=== PATIENT | female | born 1950 | race Caucasian/White ===

== ENCOUNTER 2019-01-31 16:41 | Emergency (ER) | payer MEDICARE, OTHER ==
[~2019-01-31] VITALS: Ht 175.3 cm; Wt 111.1 kg
[2019-01-31] MEDS ORDERED: FLECAINIDE ACET50 MG PO (16:52)
[2019-01-31] MEDS ORDERED: JANTOVEN3 MG NG (16:53)
[2019-01-31] MEDS ORDERED: VERAPAMIL ER240 MG PO (16:53)
[2019-01-31] MEDS ORDERED: AMLODIPINE BESY10 MG PO (16:55)
--- NOTE | 2019-02-01 15:25 | EKG ---
[facility] [address] [facility] [place], [place] [address] \T\ T wave abnormality, consider lateral ischemia Prolonged QT Abnormal ECG No previous ECGs available Confirmed by MARIO MAHARAJ DO ([id number]) on 02/01/2019 3:25:07 PM Electronically Signed By: MARIO MAHARAJ DO 02/01/19 1525 PATIENT NAME: PREETI REEVES CARMEN Electrocardiogram DATE OF : 48 PHYSICIAN: MARIO MAHARAJ DO REPORT #: [id number] REPORT IS CONFIDENTIAL AND NOT TO BE RELEASED WITHOUT AUTHORIZATION
== END 2019-01-31 20:35 | disposition home or self-care (01) ==
LOC: ED 16:41
DX: S00.83XA Contusion of other part of head, initial encounter (principal); S70.01XA Contusion of right hip, initial encounter; W18.12XA Fall from or off toilet with subsequent striking against object, initial encounter; I48.91 Unspecified atrial fibrillation; Z88.5 Allergy status to narcotic agent; Z88.8 Allergy status to other drugs, medicaments and biological substances; Z79.899 Other long term (current) drug therapy; Z79.01 Long term (current) use of anticoagulants
CPT/HCPCS: 51701; 70450; 73502; 80053; 81001; 84484; 85025; 93005; 93010; 99284-25